=== PATIENT | male | born 1965 | race Caucasian/White ===

== ENCOUNTER 2021-03-15 07:03 | Day surgery (SDC) | payer BC, SELFPAY ==
[2021-03-09 10:54] VITALS: BMI 29.8
--- NOTE | 2021-03-14 13:20 | HO.ANESPROP2 ---
Documented by User: Bre Hernandez NP 03/14/21 13:20 HPI - Anesthesia Eval Consult details Narrative: 55yo M for Upper Endoscopy and Colonoscopy [facility] Past Medical History Medical History Dysphagia Elevated cholesterol HTN (hypertension) Surgical History Surgical History History of tonsillectomy Hx of discectomy Social History Social History Are you a primary career services coordinator to a significant other at home: No Do you presently have visiting nurse or other home services: No Patient Tobacco Use Status: Never used Tobacco Use of substances other than those prescribed or required for medical reasons: No Have you been hit, kicked, punched, or otherwise hurt by someone within the past year? If so, by whom?: No Are you DNR?: No Advance Directives: No Advance Directives Information Provided: No Advance Directives on File: No Recently lost weight without trying: No Eating poorly because of decreased appetite: No Nutrition Risks: No Nutritional Risk Poor oral hygiene: No Meds Allergies Allergy/AdvReac Type Severity Reaction Status Date / Time No Known Allergies Allergy Verified 03/09/21 10:46 Home Medications Medication Instructions Recorded Confirmed Last Taken Type amlodipine 2.5 mg-benazepril 10 mg 1 cap PO DAILY 03/09/21 03/09/21 Unknown History capsule lisinopril 20 mg tablet 20 mg PO DAILY 03/09/21 03/09/21 Unknown History omeprazole magnesium 20 mg 20 mg PO DAILY 03/09/21 03/09/21 Unknown History tablet,delayed release (Prilosec OTC) Exam Exam Date and Time: March 14, 2021 1320 Height,Weight and Vital Signs: Height 6 ft Weight 99.79 kg Assessment and Plan Assessment Anesthesia Assessment: Chart Reviewed Documented by User: Seb Lebron MD 03/15/21 09:01 [facility] Past Medical History Medical History Dysphagia Elevated cholesterol HTN (hypertension) Family History Family history of problems with anesthesia: No Surgical History Surgical History History of tonsillectomy Hx of discectomy History of Problems with Anesthesia: No Social History Social History Are you a primary career services coordinator to a significant other at home: No Do you presently have visiting nurse or other home services: No Patient Tobacco Use Status: Never used Tobacco Use of substances other than those prescribed or required for medical reasons: No Have you been hit, kicked, punched, or otherwise hurt by someone within the past year? If so, by whom?: No Are you DNR?: No Advance Directives: No Advance Directives Information Provided: No Advance Directives on File: No Recently lost weight without trying: No Eating poorly because of decreased appetite: No Nutrition Risks: No Nutritional Risk Poor oral hygiene: No Meds Allergies Allergy/AdvReac Type Severity Reaction Status Date / Time No Known Allergies Allergy Verified 03/09/21 10:46 Home Medications Medication Instructions Recorded Confirmed Last Taken Type amlodipine 2.5 mg-benazepril 10 mg 1 cap PO DAILY 03/09/21 03/09/21 Unknown History capsule lisinopril 20 mg tablet 20 mg PO DAILY 03/09/21 03/09/21 Unknown History omeprazole magnesium 20 mg 20 mg PO DAILY 03/09/21 03/09/21 Unknown History tablet,delayed release (Prilosec OTC) Exam Airway Mallampati Class: I TM Dist: >3cm Neck ROM: Full Assessment and Plan Assessment Anesthesia Assessment: Anesthesia Plan Discussed Final Anesthetic Review Family History of Problems with Anesthesia: No History of Problems with Anesthesia: No NPO: Yes ASA Class: II Final Preanesthetic Review: No Changes in Pt Med Stat, Meds/Allgs Chart Reviewed, Consent Obtained/Reviewed and Anes Risks/Benef Reviewed Patient Risk: Low Procedure Risk: Low Anesthetic Plan Anesthetic Plan: MAC: Disposition: Standard PACU
[2021-03-15 07:32] VITALS: BP 150/81; PULSE 58; RESP 16; TEMP 36.2; O2SAT 100
[2021-03-15] MEDS: Lactated Ringers 1,000 ML 100 ML IVCONT (07:36)
--- NOTE | 2021-03-15 08:11 | MHC.SHP ---
Pre-Procedural Eval Section A Date of Service: 03/15/21 Section B Chief Complaint: screening,dysphagia Details of Present Illness: see H&P no changes Relevant Family History (Specify if Yes): No Relevant Social History: None Present Medications: see Short Stay Collaborative assessment Medical History: No relevant PMH Allergies: Allergies Allergy/AdvReac Type Severity Reaction Status Date / Time No Known Allergies Allergy Verified 03/09/21 10:46 Review of Systems Sugical H&P ROS: Negative: Constitution, Cardiovascular, Respiratory, Neurological, Psychiatric, Hem-Onc, Allergic/Immunologic, Gastrointestinal, Genitourinary, Musculoskeletal, Integumentary, Endocrine and Eyes/Ears/Nose/Throat Exam Surgical H&P Exam: Normal: HEENT, Normal: Heart, Normal: Lungs, Normal: Extremities, Normal: Abdomen, Normal: Skin and Normal: Neurological Plan Diagnosis/Plan: Unchanged I have reviewed the history and physical and performed a pertinent physical examination on my patient. No changes have occurred unless specified.
--- NOTE | 2021-03-15 08:55 | PM.OP ---
Brief Operative Note Date of Service: 03/15/21 Pre-op diagnosis: dysphagia,screening Post-op diagnosis: same (polyp at egj,colon polyps) Procedure: upper, colon Surgeon: Raj Sawant Anesthesia: MAC Was an [employer] used for this Procedure?: No Estimated blood loss (mL): 2 Pathology: other (bxs antrum,egj, polyp at egj, colon polyps) Condition: stable Disposition: PACU
[2021-03-15 08:57] VITALS: BP 84/44; PULSE 72; RESP 16; TEMP 36.4; O2SAT 99
[2021-03-15 09:12] VITALS: BP 106/56; PULSE 55; RESP 17; TEMP 36.4; O2SAT 98
--- NOTE | 2021-03-15 09:44 | OP_ITS ---
SURGEON: Raj Sawant MD INDICATIONS: 1. Dysphagia. 2. Colon cancer screening. PREOPERATIVE DIAGNOSIS: POSTOPERATIVE DIAGNOSIS: PROCEDURE PERFORMED: Upper endoscopy with biopsy, colonoscopy to the terminal ileum with snare polypectomy. ESTIMATED BLOOD LOSS: COMPLICATIONS: ANESTHESIA: ASSISTANTS: SPECIMENS: MEDICATIONS: Monitored anesthesia care. DESCRIPTION OF PROCEDURE: History and physical performed. The risks and benefits of the procedure were explained to the patient. Informed consent was obtained. The patient was placed in the left lateral decubitus position. The Olympus video gastroscope was introduced into the esophagus, stomach, and duodenum. Examination was performed and the scope was removed. He was repositioned for colonoscopy. A digital rectal exam was performed and was found to be normal. The Olympus pediatric video colonoscope was introduced into the rectum and advanced to the cecum without difficulty. The cecum was identified by transillumination, palpation, and identification of ileocecal valve. Examination was performed and the scope was removed. He tolerated both procedures well and was taken to recovery area in stable condition. FINDINGS: UPPER ENDOSCOPY: Esophagus: The esophagus was normal. There was a small approximately 6 to 7 mm polypoid area at the EG junction with normal overlying esophageal mucosa. This was biopsied. The EG junction was slightly irregular, but there was no esophagitis. Biopsies were obtained from the EG junction. Stomach: The stomach showed no evidence of masses, ulcers, or polyps. Antral biopsies were obtained to rule out H pylori. Duodenum: The bulb and second portion were normal. COLONOSCOPY: The terminal ileum was normal. The visualized colonic mucosa was within normal limits. The quality of the prep was good. At 20 cm, was a 10 mm polyp on a stalk, which was removed with a snare and recovered via suction. In the rectum, 5 mm polyp, which was removed with a snare and recovered via suction. No other polyps were identified. Retroflexed examination showed small internal hemorrhoids. IMPRESSION: 1. Dysphagia. 2. Polyp at EG junction. 3. Colon polyps. RECOMMENDATIONS: 1. Follow up the biopsy results. 2. The small polyp at the EG junction did not appear clinically significant and was not removed, but the biopsies will be followed up on. MD EMMANUEL Ellis/TOMMIE / [id number]
== END 2021-03-15 09:48 | disposition home or self-care (01) ==
PROVIDERS: PCP Internal Medicine; Visit Provider Internal Medicine Gastroenterology
PROC: (CPT 45385; principal; 2021-03-15 08:20)
DX: Z12.11 Encounter for screening for malignant neoplasm of colon (principal); D12.5 Benign neoplasm of sigmoid colon; K62.1 Rectal polyp; K64.8 Other hemorrhoids; R13.10 Dysphagia, unspecified; R12 Heartburn; K31.7 Polyp of stomach and duodenum; I10 Essential (primary) hypertension; E78.00 Pure hypercholesterolemia, unspecified; Z79.899 Other long term (current) drug therapy
CPT/HCPCS: 45385; 43239; 88305; 88342; J3010